=== PATIENT | male | born 1990 | race Caucasian/White ===

== ENCOUNTER → 2017-11-22 | Outpatient (CLI) | payer BC ==
[~2017-11-22] MED LIST: GADAVIST IV PRN
--- NOTE | 2017-11-22 16:08 | DIAGNOSTIC IMAGING REPORT ---
ORBITS FOR MRI HISTORY: Pre-MRI pre-MRI screening. COMPARISON: None. FINDINGS: There are no radiopaque foreign bodies identified within the orbits. Opacified right maxillary sinus IMPRESSION: No evidence for intraorbital metallic foreign body. The above report was generated using voice recognition software. It may contain grammatical, syntax or spelling errors. Electronically signed by: Temo Aguilera M.D. 11/22/2017 4:07 PM Dictated Date/Time: 11/22/2017 4:07 PM
--- NOTE | 2017-11-22 19:03 | DIAGNOSTIC IMAGING REPORT ---
PITUITARY ONLY COMBO HISTORY: 27 years-old Male HYPOGONADISM COMPARISON: CT maxillofacial study 02/05/2015 TECHNIQUE: Multiplanar multisequence MRI of the brain was obtained utilizing pituitary mass protocol both with and without the use of 13 amount Gadavist FINDINGS: Corpus callosum, brainstem, optic chiasm, and pineal gland appear unremarkable in the sagittal T1 series. No cerebellar tonsillar herniation. No significant degenerative changes about the cervical spine. Bilateral cisternal portions of the 5th cranial nerves appear normal. No cerebellar pontine angle mass. Study is mildly motion degraded. The pituitary appears homogeneous and is unremarkable without focal mass or heterogeneous enhancement identified. The dynamic postcontrast images demonstrate homogeneous enhancement of the gland without evidence of a microadenoma or macroadenoma. The pituitary infundibulum appears normal. Incidental note is made of cavum septum lucidum. Imaged brain parenchyma appears unremarkable. No abnormal intra-axial or extra-axial enhancement. There is however a heterogeneous lesion about the clivus causing bony expansion overall measuring up to approximately 1.5 x 2.0 x 2.1 cm in AP, transverse and craniocaudal dimensions respectively as seen on image 13 series 3 and image 6 series 7. There is slightly decreased T1 and T2 marrow signal centrally within this lesion without evidence of cortical destruction or cortical breakthrough. No extension or invasion into adjacent structures. Imaged remaining bones appear unremarkable. There is moderate to severe bilateral maxillary with severe ethmoid and right sphenoid sinus disease. Moderate left sphenoid sinus disease. Hypoplasia of the frontal sinuses. IMPRESSION: 1. Normal appearance of the pituitary gland without intrinsic pituitary gland lesion identified. 2. 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 No associated cortical breakthrough, cortical destruction or invasion into adjacent structures. In retrospect, on comparison CT from 2014, there is subtle slightly increased sclerosis with enlargement of the clivus, possibly reflecting the same disease entity. Fibrous dysplasia or benign notochordal cell tumor are differential considerations. No aggressive features are identified at this time to suggest chordoma or chondrosarcoma. Follow-up CT maxillofacial study is recommended to further characterize the bony characteristics of the lesion. 3. Paranasal sinus disease as above. The above report was generated using voice recognition software. It may contain grammatical, syntax or spelling errors. Electronically signed by: Fei Duarte M.D. 11/22/2017 7:01 PM Dictated Date/Time: 11/22/2017 5:28 PM
== END | disposition home or self-care (01) ==
LOC: C.MRI 15:42
PROVIDERS: ATTEND Physician Assistant
DX: Z00.00 Encounter for general adult medical examination without abnormal findings (principal); E29.1 Testicular hypofunction; R51 Headache; J32.9 Chronic sinusitis, unspecified